=== PATIENT | male | born 1985 | race Caucasian/White ===

== ENCOUNTER 2017-05-22 10:46 | Emergency (ER) | payer BC ==
[2017-05-22 10:59] VITALS: BP 147/97; PULSE 90; RESP 20; TEMP 98
[2017-05-22] MEDS ORDERED: GELATIN SPONGE,ABSORB (SMALL) 1 EACH SPONGE TOPICAL STA (11:27)
--- NOTE | 2017-05-22 11:37 | ED ---
General Adult HPI - General Chief complaint: Wound/Laceration Stated complaint: laceration on rt hand Time Seen by Provider: 05/22/17 11:15 Source: patient, RN notes reviewed Mode of arrival: ambulatory Limitations: no limitations - History of Present Illness Initial comments: Patient's a 31-year-old male presented to the emergency room today with a chief complaint of injury to the right hand. He states he was breaking down a dresser there is a sharp piece of metal that caused a false and type laceration. He states the skin is gone. She said dress himself last night and this morning still having some bleeding. He states his tetanus is up-to-date. He has full range of motion. Has no other complaint. States this occurred at 6 PM last night. Patient denies any recent fever, chills, shortness of breath, chest pain, back pain, abdominal pain, nausea or vomiting, numbness or tingling , headaches or visual changes, or any other complaints. - Related Data Allergies Allergy/AdvReac Type Severity Reaction Status Date / Time cefaclor [From Ceclor] Allergy Unknown Verified 05/22/17 10:59 Review of Systems ROS Statement: Those systems with pertinent positive or pertinent negative responses have been documented in the HPI. ROS Other: All systems not noted in ROS Statement are negative. Past Medical History Past Medical History: Cancer Additional Past Medical History / Comment(s): testicular cancer History of Any Multi-Drug Resistant Organisms: None Reported Past Surgical History: Orthopedic Surgery Additional Past Surgical History / Comment(s): orchiectomy Past Psychological History: Depression Smoking Status: Never smoker Past Alcohol Use History: None Reported Past Drug Use History: None Reported General Exam - General Exam Comments Initial Comments: General: The patient is awake and alert, in no distress, and does not appear acutely ill. Neck: The neck is supple, there is no tenderness or JVD. Musculoskeletal: Patient does have full range motion. Sensation intact pulses equal bilaterally 2+ per strength is 5/5. Neurological: A&O x 3. CN II-XII intact, There are no obvious motor or sensory deficits. Coordination appears grossly intact. Speech is normal. Skin: Avulsion laceration to the thenar eminence of the right hand. Area measures approximately 1.51.5 cm in size. Mild venous oozing. Psychiatric: Normal mood and affect. Limitations: no limitations Course Vital Signs 05/22/17 10:56 Temperature 98.0 F Pulse Rate 90 Respiratory 20 Rate Blood Pressure 147/97 O2 Sat by Pulse 99 Oximetry Procedures - Procedures Initial comment: Patient's laceration avulsion type site was cleaned here in emergency room. There is no skin to suture. There is a avulsion skin measuring approximately 1.5x1.5 cm. Area was cleaned with saline. Gelfoam placed on top with a sterile dressing. Patient tolerated well. Medical Decision Making - Medical Decision Making Patient's laceration was cleaned and dressed here the emergency room. His tetanus is up-to-date. Will be discharged home Disposition Clinical Impression: Laceration Disposition: HOME SELF-CARE Condition: Good Instructions: Laceration (ED) Additional Instructions: Please use medication as discussed. Please follow-up with family doctor in the next 2 days of symptoms have not improved. Please return to emergency room if the symptoms increase or worsen or for any other concerns. Referrals: Shailesh Santos MD [Primary Care Provider] - 1-2 days Time of Disposition: 11:34
== END 2017-05-22 12:17 | disposition home or self-care (01) ==
LOC: EC 10:46
DX: S61.411A Laceration without foreign body of right hand, initial encounter (principal); Z88.1 Allergy status to other antibiotic agents; Z85.47 Personal history of malignant neoplasm of testis; Z90.79 Acquired absence of other genital organ(s); W45.8XXA Other foreign body or object entering through skin, initial encounter; Y93.89 Activity, other specified; Y92.009 Unspecified place in unspecified non-institutional (private) residence as the place of occurrence of the external cause
CPT/HCPCS: 99282

== ENCOUNTER → 2017-12-06 | Outpatient (CLI) | payer BC ==
--- NOTE | 2017-12-07 19:49 | CT ---
EXAMINATION TYPE: CT abdomen pelvis w con DATE OF EXAM: 12/06/2017 COMPARISON: 08/17/2014 HISTORY: Follow up for seminoma of right testis. CT DLP: 1777.9 mGycm Automated exposure control for dose reduction was used. TECHNIQUE: Helical acquisition of images was performed from the lung bases through the pelvis. CONTRAST: Performed with Oral Contrast and with IV Contrast, patient injected with 100ml mL of Isovue 300. FINDINGS: LUNG BASES: No significant abnormality is appreciated. LIVER/GB: Subtle hyperattenuated focus is seen within the medial posterior liver and liver windows only on seri es 3 image 12 measuring 8 mm. This is not retrospectively seen on the exam of 2015, however there is differences in phase of contrast. Remainder the liver is grossly unremarkable. No cholelithiasis or i ntrahepatic biliary ductal dilatation. PANCREAS: No significant abnormality is seen. SPLEEN: No splenomegaly. ADRENALS: No nodularity or thickening. KIDNEYS: Kidneys enhance and excrete homogeneously. No hydronephrosis or focal renal mass. FREE AIR: No free air is visualized. ADENOPATHY: There are a few sub-5 mm mesenteric and periaortic retroperitoneal lymph nodes. In the s uperficial inguinal region on the left a 1.0 cm short axis lymph node is seen on image 86 and on the right 1.3 cm short axis lymph node is seen on image 88. These appear unchanged from the exam of 2015. A 5 mm short axis right external chain lymph node is seen on image 66 also unchanged from the prior. Aortocaval 4 mm short axis lymph node on image 49 is unchanged from the prior. No new adenopathy wit hin the abdomen or pelvis. REPRODUCTIVE ORGANS: Prostate gland is grossly unremarkable. URINARY BLADDER: Urinary bladder is incompletely distended but overall unremarkable. OSSEOUS STRUCTURES: Bilateral pars interarticularis defects are seen at L5 without anterolisthesis o f L5 on S1. BOWEL: Mild amount of retained colonic stool slightly limits evaluation of the bowel. Transverse col on is decompressed. No dilated large or small bowel. OTHER: Abdominal aorta is of normal course and caliber. IMPRESSION: 1. MINIMALLY ENLARGED RIGHT EXTERNAL ILIAC CHAIN LYMPH NODE IS STABLE FROM THE PRIOR OF 2015. OVERALL ABDOMINAL AND PELVIC LYMPH NODES ARE STABLE FROM 2015 WITH NO NEW ADENOPATHY. 2. VERY SUBTLE HYPERATTENUATED SUBCENTIMETER HEPATIC LESION THAT COULD REPRESENT A BENIGN HEMANGIOMA. CONFIRMATION WITH THREE-PHASE ENHANCED MR COULD BE PERFORMED IF THERE IS FURTHER CLINICAL CONCERN.
== END ==
LOC: RADCTMAIN 17:43
PROVIDERS: ATTEND Internal Medicine
DX: C62.91 Malignant neoplasm of right testis, unspecified whether descended or undescended (principal); K76.9 Liver disease, unspecified
CPT/HCPCS: 74177; Q9967

== ENCOUNTER → 2020-01-22 | Outpatient (CLI) | payer BC | END | disposition home or self-care (01) | LOC: LABWHC1 09:52 | PROVIDERS: ATTEND Nurse Practitioner Family | DX: Z20.828 Contact with and (suspected) exposure to other viral communicable diseases (principal); Z11.59 Encounter for screening for other viral diseases | CPT/HCPCS: U0003; C9803 ==

== ENCOUNTER → 2020-03-17 | Outpatient (CLI) | payer BC ==
--- NOTE | 2020-03-18 00:11 | CT ---
EXAMINATION TYPE: CT abdomen pelvis w con DATE OF EXAM: 03/17/2020 COMPARISON: 12/06/2017 HISTORY: Malignant neoplasm of RT testis, pt reporting no issues. CT DLP: 1991.90 mGycm Automated exposure control for dose reduction was used. CONTRAST: Performed with IV Contrast, patient injected with 100 mL of Isovue 300. Images were obtained from the diaphragm to the floor the pelvis with oral and IV contrast. The lung bases are clear. There is no pleural effusion. Heart size is normal. There is no pericardial effusion. Liver spleen stomach pancreas gallbladder appear intact. Bile ducts are not dilated. There is no adrenal mass. Kidneys show satisfactory contrast opacification. There is no hydronephrosi s. There is no retroperitoneal adenopathy. Ureters are not dilated. Delayed images show normal renal excretion. Bladder distends smoothly. There is no inguinal hernia. There is no evidence of a pelvic mass. There is no mesenteric edema. There is no ascites or free air. There is no sign of pelvic lymphadenopathy. Appendix not definitely seen. No sign of thickened appen sharon. The bony pelvis is intact. Lumbar spine is intact. There is no compression fracture. The hip joints a re intact. IMPRESSION: Negative CT scan of the abdomen pelvis. No evidence of recurrent tumor. No adverse change compared to old exam.
== END | disposition home or self-care (01) ==
LOC: RADCTMAIN 17:27
PROVIDERS: ATTEND Internal Medicine
DX: C62.91 Malignant neoplasm of right testis, unspecified whether descended or undescended (principal); Z88.1 Allergy status to other antibiotic agents
CPT/HCPCS: 74177; Q9967

== ENCOUNTER → 2023-07-26 | Outpatient (CLI) | payer BC ==
--- NOTE | 2023-07-30 05:47 | MR ---
EXAMINATION TYPE: MR knee LT wo con DATE OF EXAM: 07/26/2023 COMPARISON: NONE HISTORY: Left knee pain behind the knee after twisting injury. TECHNIQUE: Multiplanar, multisequence images of the knee is performed without IV contrast. FINDINGS: MEDIAL MENISCUS: Subtle increased signal seen best coronal image 24 appears to extend to the inferior articular surface involving central body and posterior horn. LATERAL MENISCUS: Anterior and posterior horns are intact without tear. CRUCIATE LIGAMENTS: The anterior and posterior cruciate ligaments are intact and unremarkable. COLLATERAL LIGAMENTS: The medial collateral ligament and lateral collateral ligament complex are inta ct and unremarkable. EXTENSOR MECHANISM: Visualized quadriceps and patellar tendons are intact. EFFUSION: No significant suprapatellar joint effusion. POPLITEAL CYST: No popliteal/gamboa cyst. TRICOMPARTMENT SPACES: Tricompartment joint spaces are preserved. No significant spurring. CARTILAGE: Tricompartmental articular cartilage is maintained. BONE MARROW SIGNAL: No focal abnormal marrow signal is appreciated. OTHER: No additional significant abnormality is appreciated. IMPRESSION: Subtle linear full-thickness tear in the medial meniscus otherwise unremarkable study.
== END | disposition home or self-care (01) ==
LOC: RADMRIMAIN 17:12
PROVIDERS: ATTEND Orthopaedic Surgery
DX: S83.242A Other tear of medial meniscus, current injury, left knee, initial encounter (principal); X50.1XXA Overexertion from prolonged static or awkward postures, initial encounter

== ENCOUNTER → 2023-12-28 | Outpatient (CLI) | payer BC ==
--- NOTE | 2023-12-28 07:54 | CT ---
EXAMINATION TYPE: CT brain wo con CT DLP: 1150.5 mGycm, Automated exposure control for dose reduction was used. DATE OF EXAM: 12/28/2023 7:36 AM COMPARISON: None. CLINICAL INDICATION: Male, 38 years old with history of R51.9 Headache,unspecified, headaches x1.5 we eks TECHNIQUE: Brain: Axial CT images of the brain were obtained with coronal and sagittal reformats created and rev iewed. Contrast used: None. Oral contrast used: None. FINDINGS: Brain: Extra-axial spaces: No abnormal extra-axial fluid collections. Ventricular system: Within normal limits Cerebral parenchyma: No acute intraparenchymal hemorrhage or mass effect. The thomas-white junction is well differentiated. Cerebellum: Unremarkable. Mass effect: No evidence of midline shift. Intracranial vasculature: unremarkable Soft tissues: Normal. Calvarium/osseous structures: No depressed skull fracture. Paranasal sinuses and mastoid air cells: Mild scattered paranasal sinus disease. Visualized orbits: Orbital contents are intact. IMPRESSION: No acute intracranial process. [facility], , 12/28/2023 7:52 AM
== END | disposition home or self-care (01) ==
LOC: RADCTMAIN 07:04
PROVIDERS: ATTEND Family Medicine
DX: R51.9 Headache, unspecified (principal)
CPT/HCPCS: 70450